=== PATIENT | male | born 1985 | race Caucasian/White ===

== ENCOUNTER 2017-05-31 23:43 | Emergency (ER) | payer OTHER ==
[~2017-05-31] VITALS: Ht 190.5 cm; Wt 122.8 kg
[~2017-05-31 23:43] MED LIST: AMOX875 PO; NAPR500 PO; Z.0.NO CURRENT MEDS
[2017-06-01 00:03] VITALS: BP 152/87; PULSE 75; RESP 18; TEMP 98.1; O2SAT 100
--- NOTE | 2017-06-01 04:13 | PD ---
HPI Chief Complaint: Musculoskeletal Complaint Time Seen by Provider: 04:05 Travel History International Travel<30 days: No Contact w/Intl Traveler<30days: No Traveled to known affect area: No History of Present Illness HPI Patient comes in stating that earlier this afternoon yesterday he was trying to keep elevator doors from shopping and that he put his arm in the center area however the elevator doors continued to shop and closed on his left wrist area. Patient has had a little bit of swelling to that area and pain to it as well, so the patient is here for further evaluation. No known drug allergies Patient has had past medical history significant for cruz with debridement, grafts, as well as partial papillectomy and right hip surgery. [facility] Past Medical History Medical History: Denies Significant Hx Diminished Hearing: No Tetanus Vaccination: > 5 Years Influenza Vaccination: No Past Surgical History Other Surgery: Yes (Debridement of cruz to BUE, chest, ankles with skin grafts ) Social History Alcohol Use: Yes ([facility]) Tobacco Use: No Substance Use: No Allergies-Medications (Allergen,Severity, Reaction): Coded Allergies: No Known Allergies (Verified Adverse Reaction, Unknown, 06/01/17) Reported Meds & Prescriptions Reported Meds & Active Scripts Active No Active Prescriptions or Reported Medications Review of Systems General / Constitutional: No: Fever Eyes: No: Visual changes HENT: No: Headaches Cardiovascular: No: Chest Pain or Discomfort Respiratory: No: Shortness of Breath Gastrointestinal: No: Abdominal Pain Genitourinary: No: Dysuria Musculoskeletal: Positive: Pain (Left wrist pain) Skin: No Rash Neurologic: No: Weakness Psychiatric: No: Depression Endocrine: No: Polydipsia Hematologic/Lymphatic: No: Easy Bruising Physical Exam Narrative GENERAL: SKIN: Warm and dry. HEAD: Atraumatic. Normocephalic. EYES: Pupils equal and round. No scleral icterus. No injection or drainage. ENT: No nasal bleeding or discharge. Mucous membranes pink and moist. NECK: Trachea midline. No JVD. CARDIOVASCULAR: Regular rate and rhythm. RESPIRATORY: No accessory muscle use. Clear to auscultation. Breath sounds equal bilaterally. GASTROINTESTINAL: Abdomen soft, non-tender, nondistended. MUSCULOSKELETAL: Extremities without clubbing, cyanosis, or edema. No obvious deformities. Left distal wrist area shows dorsal contusion without crepitus without any lacerations. NEUROLOGICAL: Awake and alert. No obvious cranial nerve deficits. Motor grossly within normal limits. Five out of 5 muscle strength in the arms and legs. Normal speech. PSYCHIATRIC: Appropriate mood and affect; insight and judgment normal. Data Data Last Documented VS Vital Signs Date Time Temp Pulse Resp B/P (MAP) Pulse Ox O2 Delivery O2 Flow Rate FiO2 06/01/17 04:36 66 18 120/72 (88) 97 Room Air 06/01/17 00:03 98.1 Orders Orders Wrist, Complete ([id number]) (06/01/17 ) MDM Medical Decision Making Medical Screen Exam Complete: Yes Emergency Medical Condition: Yes Medical Record Reviewed: Yes Differential Diagnosis Distal forearm/wrist contusion versus fracture versus dislocation. Narrative Course X-ray read by radiologist as negative for any fractures or dislocations. Diagnosis Primary Impression: Left distal forearm contusion Patient Instructions: Contusion in Adults (ED), General Instructions Scripts No Active Prescriptions or Reported Meds Disposition: 01 DISCHARGE HOME Condition: Stable Masood Ramirez MD Jun 01, 2017 04:13
[2017-06-01 04:36] VITALS: BP 120/72; PULSE 66; RESP 18; O2SAT 97
--- NOTE | 2017-06-01 05:01 | RADRPT ---
EXAM DATE/TIME: 06/01/2017 04:35 [facility] COMPARISON: No previous studies available for comparison. INDICATIONS : Left wrist pain after patient had an elevator door close on arm today MEDICAL HISTORY : None. SURGICAL HISTORY : None. ENCOUNTER: Initial ACUITY: 1 day PAIN SCORE: 7/10 LOCATION: Left lateral wrist FINDINGS: Three view examination of the left wrist demonstrates no soft tissue swelling, dislocation, or fractu re. The carpal bones are in normal alignment. The joint spaces are maintained. Bony mineralization is normal. CONCLUSION: Unremarkable examination of the left wrist. Nilo Hidalgo Jr., MD on June 01, 2017 at 4:59 Board Certified Radiologist. This report was verified electronically.
== END 2017-06-01 05:34 | disposition home or self-care (01) ==
LOC: PHED 23:43
DX: S50.12XA Contusion of left forearm, initial encounter (principal); W23.0XXA Caught, crushed, jammed, or pinched between moving objects, initial encounter
CPT/HCPCS: 73110; 99283